=== PATIENT | male | born 1975 | race Caucasian/White ===

== ENCOUNTER 2018-11-11 08:29 | Emergency (ER) | payer OTHER ==
[~2018-11-11] VITALS: Ht 165.1 cm; Wt 77.3 kg
[2018-11-11] MEDS ORDERED: ONDANSETRON 4MG/2ML VIAL (J2405) IV ONE (08:45)
[2018-11-11] MEDS ORDERED: NS 1,000 ML IV ONE ×2 (08:45→10:00)
[2018-11-11] MEDS ORDERED: MORPHINE 2 MG/ML 1ML SYRINGE (J2270) IV ONE (08:45)
[2018-11-11 09:24] LABS: BASO # 0.1 10^3/uL (0.0-0.2); EOS # 0.1 10^3/uL (0.0-0.50); EOS % 1.6 % (0.0-3.0); HEMATOCRIT 45.8 % (42.0-52.0); HEMOGLOBIN 15.2 g/dl (13.5-17.5); LYMPH # 2.2 10^3/uL (1.5-4.5); LYMPH % 25.7 % (24.0-44.0); MEAN CORPUSCULAR HEMOGLOBIN 29.6 pg (27.0-33.0); MEAN CORPUSCULAR HGB CONC 33.2 g/dl (32.0-36.5); MEAN CORPUSCULAR VOLUME 89.3 fl (80.0-96.0); MONO # 0.7 10^3/uL (0.0-0.8); MONO % 8.6 % (0.0-5.0); NEUTROPHILS # 5.4 10^3/uL (1.8-7.7); NEUTROPHILS % 62.8 % (36.0-66.0); PLATELET COUNT, AUTOMATED 354 10^3/uL (150-450); RED BLOOD COUNT 5.13 10^6/uL (4.30-6.10); WHITE BLOOD COUNT 8.7 10^3/uL (4.0-10.0)
[2018-11-11 09:56] LABS: BILIRUBIN,DIRECT 0.2 MG/DL (0.0-0.2)
--- NOTE | 2018-11-11 10:10 | REP ---
Clinical: Right flank pain. Technique: Real time mata scale and color evaluation using curved array transducer. Findings: Right kidney measures 10.5 x 5.3 x 4.8 cm with mild hydronephrosis suggested. No nephrolithiasis, cystic or renal mass lesion. No perinephric fluid collection. Left kidney measures 10.5 x 4.7 x 6.3 cm without hydronephrosis, nephrolithiasis, cystic or renal mass lesion. No perinephric fluid collection. Bladder demonstrates normal bilateral ureteral jets. Impression: Mild right hydronephrosis suggested. Electronically Signed by Gabriel Buckley MD 11/11/2018 10:01 A
[2018-11-11] MEDS ORDERED: TAMSULOSIN 0.4 MG CAP PO ONE (10:45)
[2018-11-11] MEDS ORDERED: cefTRIAXone SOD 1 GM in D5W MINI-BAG PLUS 50 ML IV ONE (10:45)
--- NOTE | 2018-11-11 11:28 | REP ---
Clinical: Right-sided hydronephrosis and flank pain. Technique: Axial noncontrast images from the lung bases to the pubic symphysis with coronal and sagittal re-formations. Findings: Mild right-sided obstructive uropathy is appreciated including edematous enlargement to the right kidney, perinephric and periureteral stranding along with hydroureteronephrosis secondary to a 2.5 mm calculus at the ureteral vesicle junction (image 116). No intrarenal calculi. Left kidney/ureter and bladder are within normal limits. Liver, spleen, pancreas, gallbladder, and bilateral adrenal glands are normal for noncontrast evaluation. The enteric system is without obstruction or acute inflammatory process. Scattered colonic diverticula noted without acute diverticulitis. Normal terminal ileum and appendix identified in the right lower quadrant. Pelvis demonstrates mildly prominent prostate gland. No ascites. No free air. No adenopathy. Abdominal aorta without aneurysm. Musculoskeletal structures intact. Lung bases are clear. Impression: Mild acute right-sided obstructive uropathy with a 2.5 mm calculus at the ureterovesical junction. No further urinary tract calcifications or pathology appreciated. Electronically Signed by Gabriel Buckley MD 11/11/2018 11:20 A
[2018-11-11] MEDS ORDERED: NORC1TAB7 PO (11:58)
[2018-11-11] MEDS ORDERED: FLOM0.4C39 PO (11:58)
[2018-11-11] MEDS ORDERED: KEFL500C17 PO (11:58)
[2018-11-11] MEDS ORDERED: KETO10TAB PO (11:58)
[2018-11-11 12:07] VITALS: BP 128/76
== END 2018-11-11 12:30 | disposition home or self-care (01) ==
LOC: M ED 08:29 → EDBD 08:29 → M ED 12:30
DX: N39.0 Urinary tract infection, site not specified (principal); N20.1 Calculus of ureter; N13.8 Other obstructive and reflux uropathy; R11.0 Nausea; F41.9 Anxiety disorder, unspecified
CPT/HCPCS: 74176; 76775; 80047; 80076; 81001; 83605; 83690; 85025; 96365; 96375; 99284; J0696; J2270; J2405